=== PATIENT | female | born 1945 | race Caucasian/White ===

== ENCOUNTER 2018-01-05 12:16 | Day surgery (SDC) | payer MEDICARE ==
[~2018-01-05] VITALS: Ht 149.9 cm; Wt 74.8 kg
[~2018-01-05 12:16] MED LIST: ACET500; Aspirin EC81 MG PO; CHOL10002; LOVA40; Lopressor 25 mg25 MG PO; MONT10T; NITR.6SL; Pantoprazole So40 MG PO; RANI150 PO; WARF5
== END 2018-01-05 14:12 | disposition home or self-care (01) ==
LOC: ORSCSDS 12:16
PROVIDERS: Internal Medicine Gastroenterology
PROC: 0DBP8ZX Excision of Rectum, Via Natural or Artificial Opening Endoscopic, Diagnostic (ICD-10-PCS; principal; 2018-01-05 13:30)
PROC: 0DBE8ZX Excision of Large Intestine, Via Natural or Artificial Opening Endoscopic, Diagnostic (ICD-10-PCS; principal; 2018-01-05 13:30)
PROC: 0DBL8ZX Excision of Transverse Colon, Via Natural or Artificial Opening Endoscopic, Diagnostic (ICD-10-PCS; principal; 2018-01-05 13:30)
PROC: 3E0H8GC Introduction of Other Therapeutic Substance into Lower GI, Via Natural or Artificial Opening Endoscopic (ICD-10-PCS; principal; 2018-01-05 13:30)
DX: R19.7 Diarrhea, unspecified (principal); D12.3 Benign neoplasm of transverse colon; K62.1 Rectal polyp; K57.30 Diverticulosis of large intestine without perforation or abscess without bleeding; I10 Essential (primary) hypertension; I48.91 Unspecified atrial fibrillation; I25.10 Atherosclerotic heart disease of native coronary artery without angina pectoris; G47.33 Obstructive sleep apnea (adult) (pediatric); Z87.891 Personal history of nicotine dependence; Z79.899 Other long term (current) drug therapy; Z79.01 Long term (current) use of anticoagulants
CPT/HCPCS: 88305; J7120

== ENCOUNTER 2018-10-04 09:41 | Day surgery (SDC) | payer MEDICARE ==
[~2018-10-04] VITALS: Ht 149.9 cm; Wt 77.3 kg
[~2018-10-04 09:41] MED LIST changes: +ALBU90OI INH; -CHOL10002; +CHROMIUM PICO PO; +EXTRA STRENGTH500 MG PO; -LOVA40; -Lopressor 25 mg25 MG PO; +Lopressor 50 mg50 MG PO; +Lovastatin20 MG PO; +VITAMIN D32000 UNIT PO; +[UNRECOGNIZED DRUG - OTHER] PO
--- NOTE | 2018-10-04 11:35 | NUR ---
10/04/18 1135 Arelis Dolan USED TO IRRIGATE SCOPE.
== END 2018-10-04 12:15 | disposition home or self-care (01) ==
LOC: ORSCSDS 09:41
PROVIDERS: Internal Medicine Gastroenterology
PROC: 0DBL8ZX Excision of Transverse Colon, Via Natural or Artificial Opening Endoscopic, Diagnostic (ICD-10-PCS; principal; 2018-10-04 11:15)
DX: R19.7 Diarrhea, unspecified (principal); Z86.010 Personal history of colon polyps; D12.3 Benign neoplasm of transverse colon; K57.30 Diverticulosis of large intestine without perforation or abscess without bleeding; I10 Essential (primary) hypertension; I48.91 Unspecified atrial fibrillation; E11.9 Type 2 diabetes mellitus without complications; Z79.01 Long term (current) use of anticoagulants; G47.33 Obstructive sleep apnea (adult) (pediatric); E66.9 Obesity, unspecified; Z68.34 Body mass index [BMI] 34.0-34.9, adult
CPT/HCPCS: 82947; 88305; J7120

== ENCOUNTER 2020-05-31 13:54 | Inpatient (IN) | payer MEDICARE ==
[~2020-05-31] VITALS: Ht 147.3 cm; Wt 72.6 kg
[~2020-05-31 13:54] MED LIST changes: -CIPR500 PO; -Lovastatin20 MG PO; -METO50ER PO; -METR500 PO; -MONT10T PO; -ONDA4ODT SL; -WARF5
[2020-05-31] MEDS ORDERED: WARF5 (14:20)
[2020-05-31] MEDS ORDERED: Lovastatin20 MG PO (14:21)
[2020-05-31] MEDS ORDERED: METO50ER PO (14:21)
[2020-05-31] MEDS ORDERED: MONT10T PO (14:22)
[2020-05-31 15:26] LABS: International Normalized Ratio 1.54; Prothrombin Time Results 16.1 Sec (9.7-11.5)
[2020-06-01 04:28] LABS: BASOPHILS ABSOLUTE AUTO 0.05 K/mm3 (0.00-0.23); BASOPHILS PERCENT AUTO 0 % (0-2); EOSINOPHILS ABSOLUTE AUTO 0.18 K/mm3 (0.00-0.68); EOSINOPHILS PERCENT AUTO 1 % (0-6); Hematocrit 40.2 % (33.0-51.0); IMMATURE GRAN ABSOLUTE AUTO 0.05 K/mm3 (0.00-0.10); IMMATURE GRAN PERCENT AUTO 0 % (0-1); LYMPHOCYTES ABSOLUTE AUTO 2.33 K/mm3 (0.84-5.20); LYMPHOCYTES PERCENT AUTO 18 % (21-46); MONOCYTES ABSOLUTE AUTO 1.03 K/mm3 (0.16-1.47); MONOCYTES PERCENT AUTO 8 % (4-13); Mean Corpuscular HGB Conc 32.3 g/dL (31.5-36.5); Mean Corpuscular Volume 90 fL (80-100); Mean Platelet Volume 11.3 fL (9.1-12.4); NEUTROPHILS PERCENT AUTO 72 % (41-73); Platelet Count 179 K/mm3 (150-400); RDW Coefficient Variation 13.9 % (11.7-14.2); RDW Standard Deviation 46.1 fL (35.1-46.3); Red Blood Cell Count 4.48 M/mm3 (3.80-5.20); White Blood Cell Count 13.04 K/mm3 (4.00-11.30)
[2020-06-01 04:52] LABS: Anion Gap 4 mmol/L (6-16); Blood Urea Nitrogen 9 mg/dL (8-24); Bun/Creatinine Ratio 12.6 (12.0-20.0); CO2, Blood 27 mmol/L (21-32); Calcium, Blood 8.1 mg/dL (8.5-10.1); Chloride, Blood 109 mmol/L (98-108); Creatinine, Blood 0.71 mg/dL (0.40-1.00); Glomerular Filtration Rate >60 (60-); Glucose, Blood 95 mg/dL (70-99); Potassium, Blood 3.7 mmol/L (3.5-5.5); Sodium, Blood 140 mmol/L (136-145)
--- NOTE | 2020-06-01 06:01 | NUR ---
PATIENT SLEPT MOST OF THE NIGHT. sHE DID HAVE ONE DOSE OF IV PAIN MEDICATION LAST NIGHT FOR LOWER ABDOMINAL PAIN. SHE STATES THAT SHE FEELS MUCH BETER THAN YESTERDAY WHEN SHE GO TO THE ER. INDEPENDENT IN THE ROOM. NO ACUTE CHANGES.
--- NOTE | 2020-06-01 13:46 | NUR ---
IV START UNSUCCESSFUL, JAC BATRES TO ATTEMPT. IV ANTIBIOTICS ON HOLD AT THIS TIME.
--- NOTE | 2020-06-01 17:12 | NUR ---
SUMMARY: NO ACUTE CHANGE TODAY. DR. MACIAS ADVANCED DIET TO CLEAR LIQ. PT HAS TOLERATED WELL, HAS DENIED N/V OR INCREASED PAIN SINCE DRINKING. AMBULATION ENCOURAGED. ABD IS TENDER AND MILDLY DISTENDED. NO BM TODAY. VSS, A/O, INDEP IN ROOM. NO SAFETY CONCERNS AT THIS TIME.
--- NOTE | 2020-06-01 17:40 | NUR ---
UNABLE TO RESTART AN IV, [address] NEVILLE NOTIFIED. SEE NEW ORDERS.
[2020-06-02 04:03] LABS: BASOPHILS ABSOLUTE AUTO 0.04 K/mm3 (0.00-0.23); BASOPHILS PERCENT AUTO 0 % (0-2); EOSINOPHILS ABSOLUTE AUTO 0.42 K/mm3 (0.00-0.68); EOSINOPHILS PERCENT AUTO 4 % (0-6); Hematocrit 39.7 % (33.0-51.0); Hemoglobin 12.7 g/dL (11.5-16.0); IMMATURE GRAN ABSOLUTE AUTO 0.04 K/mm3 (0.00-0.10); IMMATURE GRAN PERCENT AUTO 0 % (0-1); LYMPHOCYTES ABSOLUTE AUTO 2.04 K/mm3 (0.84-5.20); LYMPHOCYTES PERCENT AUTO 22 % (21-46); MONOCYTES ABSOLUTE AUTO 0.91 K/mm3 (0.16-1.47); MONOCYTES PERCENT AUTO 10 % (4-13); Mean Corpuscular HGB 28.3 pg (26.0-34.0); Mean Corpuscular Volume 89 fL (80-100); Mean Platelet Volume 11.2 fL (9.1-12.4); NEUTROPHILS ABSOLUTE AUTO 6.03 K/mm3 (1.96-9.15); NEUTROPHILS PERCENT AUTO 64 % (41-73); Platelet Count 220 K/mm3 (150-400); RDW Coefficient Variation 13.8 % (11.7-14.2); RDW Standard Deviation 45.1 fL (35.1-46.3); Red Blood Cell Count 4.48 M/mm3 (3.80-5.20); White Blood Cell Count 9.48 K/mm3 (4.00-11.30)
[2020-06-02 04:23] LABS: Anion Gap 7 mmol/L (6-16); Blood Urea Nitrogen 8 mg/dL (8-24); Bun/Creatinine Ratio 11.3 (12.0-20.0); CO2, Blood 26 mmol/L (21-32); Calcium, Blood 8.1 mg/dL (8.5-10.1); Chloride, Blood 109 mmol/L (98-108); Creatinine, Blood 0.71 mg/dL (0.40-1.00); Glomerular Filtration Rate >60 (60-); Glucose, Blood 86 mg/dL (70-99); Phosphorus, Blood 2.5 mg/dL (2.5-4.9); Potassium, Blood 3.6 mmol/L (3.5-5.5); Sodium, Blood 142 mmol/L (136-145)
--- NOTE | 2020-06-02 04:55 | NUR ---
PT VSS T/O NIGHT; HR SINUS 60'S PER TELE MONITOR. PT REP LLQ ABD PAIN MILLA, DECLINED NEED FOR PAIN MEDS. PT MILLA CL PO, NO N/V. BT MORE ACTIVE THIS AM, PT REPORTS PASSING FLATUS, NO BM YET. PT UP OOB W/FWW, MILLA WELL. WILL CONT TO MONITOR UNTIL REP GIVEN TO ONCOMING RN.
--- NOTE | 2020-06-02 11:17 | NUR ---
TELE DC'D AT THIS TIME
--- NOTE | 2020-06-02 16:43 | NUR ---
SUMMARY: NO ACUTE CHANGE TODAY. VSS, A/O, INDEP IN ROOM. PT REPORTS FEELING BETTER. HAS DENIED PAIN /NAUSEA. REPORTS FLATUS AND BOWEL TONES ARE PRESENT. PT WILL TRY FULL LIQ TONIGHT. PLAN IS TO ADVANCE DIET AND POSSIBLE DC TOMORROW IF TOLERATES. NO SAFETY CONCERNS AT THIS TIME. WILL CTM AND REPORT TO HIEN NATHAN.
--- NOTE | 2020-06-03 06:51 | NUR ---
SHIFT SUMMARY DIVERTICULITIS W/ MICRO PERF, A/O X4, VSS, DENIES PAIN. AMBULATES INDEPENDENTLY TO BATHROOM IN ROOM, REPORTED FEELING DIZZY AND CALLED FOR ASSISTANCE TO GET BACK TO BED. TOLERATING PO, VOIDING WELL. CALL LIGHT IN REACH, WILL CONTINUE TO MONITOR AND REPORT TO ONCOMING DAY RN.
[2020-06-03] MEDS ORDERED: CIPR500 PO (13:18)
[2020-06-03] MEDS ORDERED: METR500 PO (13:19)
[2020-06-03] MEDS ORDERED: ONDA4ODT SL (13:19)
--- NOTE | 2020-06-03 13:34 | NUR ---
DISCHARGE PT GIVEN WRITTEN AND VERBAL DISCHARGE INSTRUCTIONS, VERBALIZED UNDERSTANDING OF THESE INSTRUCTIONS. NEW RX'S FAXED TO [facility]. PT WILL CALL FOR WHEELCHAIR TO CAR WHEN SHE IS READY TO GO.
== END 2020-06-03 13:39 | disposition home or self-care (01) | DRG 392 ==
LOC: ER 13:54 → SURS 16:09
PROVIDERS: Family Medicine; Physician Assistant; ADMIT Internal Medicine
DX: K57.20 Diverticulitis of large intestine with perforation and abscess without bleeding (principal); I48.0 Paroxysmal atrial fibrillation; E11.9 Type 2 diabetes mellitus without complications; G47.33 Obstructive sleep apnea (adult) (pediatric); E78.5 Hyperlipidemia, unspecified; Z79.01 Long term (current) use of anticoagulants; Z87.891 Personal history of nicotine dependence
CPT/HCPCS: 36415; 80048; 80069; 82947; 85025; 85610; 96365; 96366; 96368; 96375; 99284-25; A9270; A9270-GY; J0744; J2405; J3010; J7120

== ENCOUNTER → 2020-05-31 | Outpatient (CLI) | payer MEDICARE ==
[~2020-05-31] MED LIST changes: +CIPR500 PO; -Lopressor 50 mg50 MG PO; +METO50ER PO; +METR500 PO; -MONT10T; +MONT10T PO; +ONDA4ODT SL
[2020-05-31 11:20] LABS: BASOPHILS ABSOLUTE AUTO 0.03 K/mm3 (0.00-0.23); BASOPHILS PERCENT AUTO 0 % (0-2); EOSINOPHILS ABSOLUTE AUTO 0.04 K/mm3 (0.00-0.68); EOSINOPHILS PERCENT AUTO 0 % (0-6); Hematocrit 40.6 % (33.0-51.0); Hemoglobin 13.5 g/dL (11.5-16.0); IMMATURE GRAN ABSOLUTE AUTO 0.11 K/mm3 (0.00-0.10); IMMATURE GRAN PERCENT AUTO 1 % (0-1); LYMPHOCYTES ABSOLUTE AUTO 1.52 K/mm3 (0.84-5.20); LYMPHOCYTES PERCENT AUTO 10 % (21-46); MONOCYTES ABSOLUTE AUTO 1.17 K/mm3 (0.16-1.47); MONOCYTES PERCENT AUTO 8 % (4-13); Mean Corpuscular HGB 28.9 pg (26.0-34.0); Mean Corpuscular HGB Conc 33.3 g/dL (31.5-36.5); Mean Corpuscular Volume 87 fL (80-100); Mean Platelet Volume 11.7 fL (9.1-12.4); NEUTROPHILS ABSOLUTE AUTO 12.82 K/mm3 (1.96-9.15); NEUTROPHILS PERCENT AUTO 82 % (41-73); Platelet Count 205 K/mm3 (150-400); RDW Coefficient Variation 14.4 % (11.7-14.2); RDW Standard Deviation 45.7 fL (35.1-46.3); Red Blood Cell Count 4.67 M/mm3 (3.80-5.20); White Blood Cell Count 15.69 K/mm3 (4.00-11.30)
[2020-05-31 11:29] LABS: Alanine Aminotransfer (ALT/SGP 36 U/L (12-78); Albumin, Blood 3.7 g/dL (3.4-5.0); Albumin/Globulin Ratio 1.2 (0.8-1.8); Alk Phos 73 U/L (40-126); Amylase, Blood 26 U/L (25-115); Anion Gap 9 mmol/L (6-16); Aspartate Aminotrans (AST/SGOT 20 U/L (12-37); Bilirubin, Total 0.6 mg/dL (0.1-1.0); Blood Urea Nitrogen 13 mg/dL (8-24); Bun/Creatinine Ratio 14.6 (12.0-20.0); CO2, Blood 29 mmol/L (21-32); Calcium, Blood 8.4 mg/dL (8.5-10.1); Chloride, Blood 100 mmol/L (98-108); Creatinine, Blood 0.89 mg/dL (0.40-1.00); Globulin, Blood 3.2 g/dL (2.2-4.0); Glomerular Filtration Rate >60 (60-); Glucose, Blood 104 mg/dL (70-99); Potassium, Blood 3.8 mmol/L (3.5-5.5); Sodium, Blood 138 mmol/L (136-145); Total Protein, Blood 6.9 g/dL (6.4-8.2)
== END | disposition home or self-care (01) ==
LOC: LAB SHORT 11:03 → LAB EV 11:03
PROVIDERS: General Practice
DX: R10.30 Lower abdominal pain, unspecified (principal)
CPT/HCPCS: 80053; 82150; 83690; 85025

== ENCOUNTER 2020-06-28 12:00 | Emergency (ER) | payer MEDICARE ==
[~2020-06-28] VITALS: Ht 149.9 cm; Wt 70.3 kg
[~2020-06-28 12:00] MED LIST changes: +CIPR500 PO; +METO50ER PO; +METR500 PO; +MONT10T PO; +ONDA4ODT SL; +WARF5 PO
[2020-06-28 14:34] LABS: BASOPHILS ABSOLUTE AUTO 0.07 K/mm3 (0.00-0.23); BASOPHILS PERCENT AUTO 1 % (0-2); EOSINOPHILS ABSOLUTE AUTO 0.26 K/mm3 (0.00-0.68); EOSINOPHILS PERCENT AUTO 3 % (0-6); Hematocrit 41.9 % (33.0-51.0); Hemoglobin 13.4 g/dL (11.5-16.0); IMMATURE GRAN ABSOLUTE AUTO 0.04 K/mm3 (0.00-0.10); IMMATURE GRAN PERCENT AUTO 0 % (0-1); LYMPHOCYTES ABSOLUTE AUTO 3.96 K/mm3 (0.84-5.20); LYMPHOCYTES PERCENT AUTO 41 % (21-46); MONOCYTES ABSOLUTE AUTO 0.97 K/mm3 (0.16-1.47); MONOCYTES PERCENT AUTO 10 % (4-13); Mean Corpuscular HGB 28.5 pg (26.0-34.0); Mean Corpuscular Volume 89 fL (80-100); Mean Platelet Volume 11.6 fL (9.1-12.4); NEUTROPHILS ABSOLUTE AUTO 4.47 K/mm3 (1.96-9.15); NEUTROPHILS PERCENT AUTO 46 % (41-73); Platelet Count 234 K/mm3 (150-400); RDW Coefficient Variation 14.2 % (11.7-14.2); RDW Standard Deviation 46.1 fL (35.1-46.3); Red Blood Cell Count 4.71 M/mm3 (3.80-5.20); White Blood Cell Count 9.77 K/mm3 (4.00-11.30)
[2020-06-28 14:45] LABS: Alanine Aminotransfer (ALT/SGP 29 U/L (12-78); Albumin, Blood 3.6 g/dL (3.4-5.0); Albumin/Globulin Ratio 1.1 (0.8-1.8); Alk Phos 47 U/L (50-136); Anion Gap 5 mmol/L (6-16); Aspartate Aminotrans (AST/SGOT 28 U/L (12-37); Bilirubin, Total 0.4 mg/dL (0.1-1.0); Blood Urea Nitrogen 7 mg/dL (8-24); Bun/Creatinine Ratio 10.8 (12.0-20.0); CO2, Blood 28 mmol/L (21-32); Calcium, Blood 8.6 mg/dL (8.5-10.1); Chloride, Blood 110 mmol/L (98-108); Creatinine, Blood 0.65 mg/dL (0.40-1.00); Globulin, Blood 3.3 g/dL (2.2-4.0); Glomerular Filtration Rate >60 (60-); Glucose, Blood 86 mg/dL (70-99); Potassium, Blood 4.4 mmol/L (3.5-5.5); Sodium, Blood 143 mmol/L (136-145); Total Protein, Blood 6.9 g/dL (6.4-8.2)
[2020-06-28 14:51] LABS: International Normalized Ratio 2.35
[2020-06-28 15:01] LABS: Source, Urine Clean Catch
[2020-06-28 15:04] LABS: Appearance, Urine Clear (Clear); Bilirubin, Urine Neg (Neg); Blood, Urine Neg (Neg); Color, Urine Yellow (P-Yellow); Glucose Qualitative, Urine Neg (Neg); Ketones, Urine Neg (Neg); Leukocyte Esterase, Urine Neg (Neg); Nitrite, Urine Neg (Neg); Protein, Urine Neg (Neg); Specific Gravity, Urine 1.005 (1.003-1.022); Urobilinogen, Urine NORM (Normal)
[2020-06-28] MEDS ORDERED: Lovastatin20 MG PO (15:08)
[2020-06-28] MEDS ORDERED: AMOCLA875 PO (16:06)
== END 2020-06-28 16:22 | disposition home or self-care (01) ==
LOC: ER 12:00
PROVIDERS: Emergency Medicine
DX: K57.80 Diverticulitis of intestine, part unspecified, with perforation and abscess without bleeding (principal); Z79.01 Long term (current) use of anticoagulants; Z79.899 Other long term (current) drug therapy
CPT/HCPCS: 36415; 80053; 81003; 83605; 85025; 85610; 93005; 93010; 96365; 99284-25; J2543

== ENCOUNTER 2022-06-25 10:20 | Emergency (ER) | payer MEDICARE ==
[~2022-06-25] VITALS: Ht 147.3 cm; Wt 70.3 kg
[~2022-06-25 10:20] MED LIST changes: +AMOCLA875 PO; +Lovastatin20 MG PO
[2022-06-25] MEDS ORDERED: ESCITALOPRAM OXA5 MG PO (11:02)
[2022-06-25 12:05] LABS: Albumin, Blood 3.3 g/dL (3.4-5.0); Albumin/Globulin Ratio 0.9 (0.8-1.8); Bilirubin, Total 0.8 mg/dL (0.1-1.0); Calcium, Blood 8.7 mg/dL (8.5-10.1); Creatinine, Blood 0.73 mg/dL (0.40-1.00); Globulin, Blood 3.6 g/dL (2.2-4.0); Potassium, Blood 4.1 mmol/L (3.5-5.5); Total Protein, Blood 6.9 g/dL (6.4-8.2)
[2022-06-25 13:18] LABS: Source, Urine Straight Cath
[2022-06-25 13:22] LABS: BASOPHILS ABSOLUTE AUTO 0.06 K/mm3 (0.00-0.23); BASOPHILS PERCENT AUTO 0 % (0-2); EOSINOPHILS ABSOLUTE AUTO 0.03 K/mm3 (0.00-0.68); EOSINOPHILS PERCENT AUTO 0 % (0-6); Hematocrit 39.7 % (33.0-51.0); Hemoglobin 13.2 g/dL (11.5-16.0); IMMATURE GRAN ABSOLUTE AUTO 0.08 K/mm3 (0.00-0.10); IMMATURE GRAN PERCENT AUTO 1 % (0-1); LYMPHOCYTES ABSOLUTE AUTO 2.42 K/mm3 (0.84-5.20); LYMPHOCYTES PERCENT AUTO 17 % (21-46); MONOCYTES ABSOLUTE AUTO 1.53 K/mm3 (0.16-1.47); MONOCYTES PERCENT AUTO 11 % (4-13); Mean Corpuscular HGB 29.7 pg (26.0-34.0); Mean Corpuscular HGB Conc 33.2 g/dL (31.5-36.5); Mean Corpuscular Volume 89 fL (80-100); Mean Platelet Volume 10.9 fL (9.1-12.4); NEUTROPHILS ABSOLUTE AUTO 10.07 K/mm3 (1.96-9.15); NEUTROPHILS PERCENT AUTO 71 % (41-73); Platelet Count 195 K/mm3 (150-400); RDW Coefficient Variation 13.8 % (11.7-14.2); RDW Standard Deviation 45.4 fL (35.1-46.3); Red Blood Cell Count 4.44 M/mm3 (3.80-5.20); White Blood Cell Count 14.19 K/mm3 (4.00-11.30)
[2022-06-25 13:22] LABS: Appearance, Urine Clear (Clear); Bilirubin, Urine Neg (Neg); Blood, Urine Neg (Neg); Color, Urine Yellow (P-Yellow); Glucose Qualitative, Urine Neg (Neg); Ketones, Urine Neg (Neg); Leukocyte Esterase, Urine Neg (Neg); Nitrite, Urine Neg (Neg); Protein, Urine 1+ (Neg); Urobilinogen, Urine NORM (Normal)
[2022-06-25 13:58] LABS: International Normalized Ratio 1.16; Prothrombin Time Results 12.1 Sec (9.7-11.5)
[2022-06-25] MEDS ORDERED: ULTRA-LIGHT RO1 EACH MC (14:55)
== END 2022-06-25 15:20 | disposition home or self-care (01) ==
LOC: ER 10:20
PROVIDERS: Emergency Medicine; Student in an Organized Health Care Education/Training Program
DX: R53.1 Weakness (principal); R29.6 Repeated falls; I48.91 Unspecified atrial fibrillation; E11.9 Type 2 diabetes mellitus without complications; Z72.3 Lack of physical exercise; Z91.018 Allergy to other foods; Z79.01 Long term (current) use of anticoagulants; Z79.899 Other long term (current) drug therapy
CPT/HCPCS: 70450; 80053; 83735; 85025; 85610; 93005; 93010; J7030